=== PATIENT | male | born 1975 | race Caucasian/White ===

== ENCOUNTER 2022-04-10 18:09 | Emergency (ER) | payer BC ==
[~2022-04-10] VITALS: Ht 167.6 cm; Wt 84.0 kg
[2022-04-10 18:25] VITALS: BP 129/84
== END 2022-04-10 21:46 | disposition home or self-care (01) ==
LOC: ER 18:09
DX: S82.091A Other fracture of right patella, initial encounter for closed fracture (principal); W18.39XA Other fall on same level, initial encounter; Y93.89 Activity, other specified; Y92.89 Other specified places as the place of occurrence of the external cause; Y99.8 Other external cause status
CPT/HCPCS: 73564; 73590; 99284; L1830